=== PATIENT | female | born 1960 | race Caucasian/White ===

== ENCOUNTER → 2020-03-18 | Outpatient (CLI) | payer BC ==
--- NOTE | 2020-03-18 15:56 | KCIC ---
MRI study of the right shoulder without contrast Clinical indications: 2 falls with right shoulder injury. Right shoulder pain and/weakness. TECHNIQUE: Noncontrast MRI sequences of the right shoulder were performed in all 3 planes. FINDINGS: There is tendinosis of the lateral aspect of the infraspinatus tendon and supraspinatus tendon. There is complete tear of the lateral aspect of the supraspinatus tendon at the insertion onto the greater tubercle. Transverse dimension of the defect is 11 mm. AP dimension is 16 mm. Subscapularis tendon is intact. The tendon of the long head of the biceps is intact. No muscle atrophy is seen. 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 Spurring of the lateral inferior edge of the acromial process is seen. A type III acromial process is seen. These findings may impinge the acromial humeral space. Mild chronic erosive change of the lateral aspect of the humeral head is seen. No fracture or marrow infiltrative process is seen. Small amount of fluid with the subdeltoid and subacromial bursa is seen as a result of the complete tear. There is mild degenerative spurring of the glenohumeral joint. Small glenohumeral joint effusion is seen. No loose body is evident. The glenoid labrum is intact. No paralabral ganglion cyst or spinoglenoid notch ganglion cyst is seen. IMPRESSION: Complete rotator cuff tear. Impingement of the acromial humeral space. Electronically signed by: Peter Ricks MD (03/18/2020 3:53 PM) [id number]
== END | disposition home or self-care (01) ==
LOC: KCIC MRI 13:39
PROVIDERS: ATTEND Orthopaedic Surgery
DX: M75.121 Complete rotator cuff tear or rupture of right shoulder, not specified as traumatic (principal); M19.011 Primary osteoarthritis, right shoulder; M25.411 Effusion, right shoulder
CPT/HCPCS: 73221

== ENCOUNTER → 2021-05-19 | Outpatient (CLI) | payer BC ==
--- NOTE | 2021-05-19 16:53 | KCIC ---
Examination: MRI of the left shoulder without contrast. HISTORY: Left shoulder pain, decreased range of motion COMPARISON: None available TECHNIQUE: Multiplanar, multisequence MR imaging of the left shoulder performed without contrast FINDINGS: The long head of the biceps tendon within the bicipital groove. The attachment of the long head the b iceps tendon to the superior labral anchor grossly appears intact. The attachment of the subscapulari s tendon grossly appears intact. Small focus of full-thickness tear identified in the conjoined porti on of the supraspinatus and infraspinatus tendon measuring 7 mm with extension of fluid from the shou lder joint and subacromial subdeltoid bursa. Moderate increased density identified in the supraspinat us, infraspinatus tendon likely tendinosis. The visualized labrum grossly appears unremarkable. The a cromion is type II. The muscle bulk grossly appears unremarkable. There is obscuration of fat in the rotator interval. Moderate degenerative changes acromioclavicular joint and glenohumeral joint. IMPRESSION: 1. Small focus of full-thickness tear of the conjoined portion of supraspinatus, infraspinatus tendon measuring 7 mm. 2. Moderate rotator cuff tendinosis. 3. Obscuration of fat in the rotator interval. Correlate for adhesive capsulitis. Electronically signed by: Braxton Cornejo MD (05/19/2021 4:50 PM) [id number]
== END ==
LOC: KCIC MRI 15:20
PROVIDERS: ATTEND Orthopaedic Surgery
DX: M75.122 Complete rotator cuff tear or rupture of left shoulder, not specified as traumatic (principal); M75.32 Calcific tendinitis of left shoulder; M19.012 Primary osteoarthritis, left shoulder
CPT/HCPCS: 73221